=== PATIENT | male | born 1980 | race Caucasian/White ===

== ENCOUNTER 2020-09-27 14:18 | Emergency (ER) | payer OTHER ==
--- NOTE | 2020-09-27 15:58 | XR ---
EXAMINATION TYPE: XR chest 2V DATE OF EXAM: 09/27/2020 COMPARISON: NONE HISTORY: Shortness of breath and chest pain. TECHNIQUE: Frontal and lateral views of the chest are obtained. FINDINGS: There is mild left basilar opacity. No pleural effusion, or pneumothorax seen. The cardia c silhouette size is within normal limits. The osseous structures are intact. IMPRESSION: Left basilar opacity may represent atelectasis or infiltrates.
--- NOTE | 2020-09-27 16:32 | ED ---
General Adult HPI - General Chief complaint: Shortness of Breath Stated complaint: Covid+, Oxygen decreasin fast, symptoms worsening Time Seen by Provider: 09/27/20 16:04 Source: patient, RN notes reviewed Mode of arrival: wheelchair Limitations: no limitations - History of Present Illness Initial comments: Patient is a 40-year-old male that presents to the emergency department complaining of Covid like symptoms since the sixth. He did note that he tested positive at his primary care on the . He states that he's had generalized muscle aches, dry cough, diarrhea, nausea, fever. He did note that some a symptoms come and go with the muscle aches nausea and diarrhea. He was in no apparent distress with sitting in bed during the exam and interview. She denied any chest pain headache constipation chills weakness numbness tingling dizziness lightheadedness. - Related Data Allergies Allergy/AdvReac Type Severity Reaction Status Date / Time No Known Allergies Allergy Verified 09/27/20 15:24 Review of Systems ROS Statement: Those systems with pertinent positive or pertinent negative responses have been documented in the HPI. ROS Other: All systems not noted in ROS Statement are negative. Past Medical History Past Medical History: No Reported History History of Any Multi-Drug Resistant Organisms: None Reported Past Surgical History: Orthopedic Surgery Additional Past Surgical History / Comment(s): bilateral knee surgeries at age 19 Past Psychological History: No Psychological Hx Reported Smoking Status: Never smoker Past Alcohol Use History: Occasional Past Drug Use History: None Reported General Exam Limitations: no limitations General appearance: alert, in no apparent distress, obese Head exam: Present: atraumatic, normocephalic, normal inspection Eye exam: Present: normal appearance, PERRL, EOMI. Absent: scleral icterus, conjunctival injection, periorbital swelling ENT exam: Present: normal exam, mucous membranes moist Neck exam: Present: normal inspection. Absent: tenderness, meningismus, lymphadenopathy Respiratory exam: Present: normal lung sounds bilaterally. Absent: respiratory distress, wheezes, rales, rhonchi, stridor Cardiovascular Exam: Present: regular rate, normal rhythm, normal heart sounds. Absent: systolic murmur, diastolic murmur, rubs, gallop, clicks GI/Abdominal exam: Present: soft, normal bowel sounds. Absent: distended, tenderness, guarding, rebound, rigid Extremities exam: Present: normal inspection, full ROM, normal capillary refill. Absent: tenderness, pedal edema, joint swelling, calf tenderness Neurological exam: Present: alert, oriented X3, CN II-XII intact Psychiatric exam: Present: normal affect, normal mood Skin exam: Present: warm, dry, intact, normal color. Absent: rash Course Vital Signs 09/27/20 09/27/20 09/27/20 15:20 16:53 16:54 Temperature 98.3 F 101.5 F H Pulse Rate 89 82 Respiratory 18 20 Rate Blood Pressure 104/76 O2 Sat by Pulse 97 94 L Oximetry 09/27/20 09/27/20 17:54 18:34 Temperature Pulse Rate 89 Respiratory 20 18 Rate Blood Pressure O2 Sat by Pulse Oximetry Medical Decision Making - Medical Decision Making Patient is a 40-year-old male that tested positive for Covid on 09/26/2020. Chest x-ray ordered. Patient was informed that he does meet criteria for monoclonal antibody therapy, and wishes to undergo IV infusion therapy. Patient was informed of the procedure along with the risks versus benefits. Case discussed with Dr. Melara, patient can discharge after IV infusion therapy. - Radiology Data Radiology results: report reviewed, image reviewed Chest x-ray: Left basilar opacity may represent atelectasis or infiltrates. Disposition Clinical Impression: COVID-19 Disposition: HOME SELF-CARE Condition: Stable Instructions (If sedation given, give patient instructions): Coronavirus Disease 2019 (COVID-19) Additional Instructions: Please return to the Emergency Department if symptoms worsen or any other concer ns. Follow-up primary care after the 10-14 days and quarantine. Can continue take [id number] Motrin or Tylenol for fever and muscle ache. Increase oral fluids. Get plenty or rest Is patient prescribed a controlled substance at d/c from ED?: No Referrals: Radha Sheikh DO [Primary Care Provider] - 1-2 days Time of Disposition: 18:54
[2020-09-27] MEDS: BAMLANIVIMAB (EUA) 700 MG, ETESEVIMAB (EUA) 1,400 MG in SODIUM CHLORIDE 0.9% 50 ML IVPB ONE (17:21)
[2020-09-27 19:41] VITALS: BP 131/83; PULSE 81; RESP 20; TEMP 98.2
== END 2020-09-27 19:40 | disposition home or self-care (01) ==
LOC: EC 14:18
DX: U07.1 COVID-19 (principal)
CPT/HCPCS: 71046; 99285; 96365; Q0245